=== PATIENT | female | born 1960 | race Caucasian/White ===

== ENCOUNTER → 2019-03-30 | Outpatient (CLI) | payer MEDICARE, OTHER ==
--- NOTE | 2019-03-30 08:28 | CT ---
EXAMINATION TYPE: CT cervical spine wo con DATE OF EXAM: 03/30/2019 COMPARISON: NONE HISTORY: Arm numbness and weakness. Neck pain. CT DLP: 369.7 mGycm. Automated Exposure Control for Dose Reduction was Utilized. TECHNIQUE: CT scan of the cervical spine is obtained without contrast, axial images are obtained, sa gittal and coronal reformatted images are also reviewed. FINDINGS: Cervical spine is visualized in its entirety from C1 through upper thoracic levels, demonst rates satisfactory alignment without evidence of acute fracture or dislocation. Prevertebral soft ti ssue appears within normal limits. The C1-C2 articulation is within normal limits on the coronal dahiana ges. Vertebral body heights are maintained. Moderate disc space narrowing is present C5-C6 level with posterior left paracentral spur disc complex effacing the anterior thecal sac and mild to moderate l eft-sided neural foraminal narrowing due to uncovertebral facet spurring. Review of axial images shows additional mild left greater than right bilateral neural foraminal narro wing due to uncovertebral spurring at C4-C5 level. Other levels are felt within normal limits on CT. Thyroid gland is felt within normal limits. Mild left apical pleural/parenchymal scarring is present. IMPRESSION: As above. Degenerative change C5-C6 level noted.
--- NOTE | 2019-03-30 08:32 | CT ---
EXAMINATION TYPE: CT lumbar spine wo con DATE OF EXAM: 03/30/2019 8:18 AM COMPARISON: None. HISTORY: Low back pain with leg weakness and multiple falls CT DLP: 624.7 mGycm Automated exposure control for dose reduction was used. Unenhanced CT of the lumbar spine was performed. Bone and soft tissue window settings are submitted as well as coronal and sagittal reconstructions. There are 5 lumbar-type vertebrae are identified though the L5 vertebra is sacralized on the left. Al ignment is satisfactory. Vertebral body heights and disc space heights are maintained. No large poste rior disc herniations on sagittal images. No significant spurring. Axial images show [id number] facet arthropathy L4-L5 level and moderate to advanced right great er than left facet arthropathy at L5-S1 level. There is partial visualization of posterior sacral wir e and cholecystectomy clips. IMPRESSION: Sacralized left L5 segment with lower lumbar spine facet arthropathy. No large focal disc herniation is identified.
== END | disposition home or self-care (01) ==
LOC: RADCTMAIN 07:49
PROVIDERS: ATTEND Psychiatry & Neurology Neurology
DX: M99.71 Connective tissue and disc stenosis of intervertebral foramina of cervical region (principal); M47.812 Spondylosis without myelopathy or radiculopathy, cervical region; M46.97 Unspecified inflammatory spondylopathy, lumbosacral region; Z88.5 Allergy status to narcotic agent; Z91.040 Latex allergy status
CPT/HCPCS: 72125; 72131

== ENCOUNTER 2022-02-19 10:22 | Day surgery (SDC) | payer MEDICARE, OTHER ==
[2022-02-15 11:52] VITALS: BMI 30.1
[~2022-02-19 10:22] MED LIST: LIDOCAINE 1% (10MG/ML) FOR IV START INTRADERMA PRN
[2022-02-19 11:27] VITALS: TEMP 97.7
[2022-02-19] MEDS: LACTATED RINGERS 1,000 ML IV SCH ×2 (11:38→11:51)
[2022-02-19] MEDS ORDERED: PROPOFOL 10 MG/ML 20 ML VIAL IV ONE (11:52)
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
--- NOTE | 2022-02-19 12:14 | P.OP ---
Date of Procedure: 02/19/22 Preoperative Diagnosis: Possible right colon mass Postoperative Diagnosis: Mild diverticulosis Procedure(s) Performed: Colonoscopy Anesthesia: MAC Surgeon: Nick Cm Pathology: none sent Condition: stable Disposition: PACU Description of Procedure: The patient's placed on the endoscopy table in the lateral position. She received IV sedation. Digital rectal exam was performed. This revealed no abnormalities. Flexible colonoscope was then placed patient anus and passed throughout the entire colon. Ileocecal valve was visualized. A pediatric scope was utilized because the colon was quite tortuous. The appendiceal orifice was seen. The cecum appeared normal. The ascending colon appeared normal. The hepatic flexure appeared normal. The transverse colon appeared normal. The descending; was mild diverticular changes. Scope was then brought back into the rectum and this appeared normal. Scope withdrawn for patient.
[2022-02-19 12:31] VITALS: BP 103/57; PULSE 53; RESP 16
== END 2022-02-19 13:00 | disposition home or self-care (01) ==
LOC: ORWHC2ENDO 10:22
PROVIDERS: ATTEND Surgery
DX: K57.30 Diverticulosis of large intestine without perforation or abscess without bleeding (principal); M79.7 Fibromyalgia; G40.909 Epilepsy, unspecified, not intractable, without status epilepticus; I34.1 Nonrheumatic mitral (valve) prolapse; J45.909 Unspecified asthma, uncomplicated; F98.8 Other specified behavioral and emotional disorders with onset usually occurring in childhood and adolescence; F90.9 Attention-deficit hyperactivity disorder, unspecified type; Z87.19 Personal history of other diseases of the digestive system; Z90.49 Acquired absence of other specified parts of digestive tract; Z87.891 Personal history of nicotine dependence; Z80.1 Family history of malignant neoplasm of trachea, bronchus and lung; Z80.52 Family history of malignant neoplasm of bladder; Z79.899 Other long term (current) drug therapy; Z79.890 Hormone replacement therapy; Z88.5 Allergy status to narcotic agent; Z91.040 Latex allergy status
CPT/HCPCS: 45378; J2704

== ENCOUNTER → 2022-05-31 | Outpatient (CLI) | payer MEDICARE, OTHER ==
--- NOTE | 2022-05-31 12:15 | CT ---
EXAMINATION TYPE: CT abdomen pelvis w con CT DLP: 1194 mGycm, Automated exposure control for dose reduction was used. DATE OF EXAM: 05/31/2022 11:50 AM COMPARISON: CT lumbar spine 03/30/2019. CLINICAL INDICATION:Female, 61 years old with history of K57.33 Diverticulitis; TECHNIQUE: Standard CT of the abdomen and pelvis following the administration of 70 cc of Isovue 30 0 IV contrast material and oral contrast. Coronal and sagittal reformats were performed. FINDINGS: LOWER CHEST: Unremarkable ABDOMEN LIVER: Unremarkable GALLBLADDER AND BILE DUCTS: Unremarkable. PANCREAS: Unremarkable. SPLEEN: Unremarkable. ADRENAL GLANDS: Unremarkable. KIDNEYS AND URETERS: No evidence of hydronephrosis or renal calculus. The kidneys enhance symmetrical ly without suspicious focal lesion. Contrast is demonstrated within both collecting systems on the de layed phase. PELVIS BLADDER: Unremarkable REPRODUCTIVE: The uterus is surgically absent. No suspicious adnexal mass. ABDOMEN & PELVIS STOMACH AND BOWEL: Stomach and duodenum are unremarkable. Sigmoid colonic diverticulosis without evid ence for acute diverticulitis. No pericolonic abscess. The appendix is not definitively visualized ho wever there is no significant inflammatory changes within the right lower quadrant. No evidence of julio wel obstruction. Enteric contrast reaches the ascending colon. PERITONEUM: No evidence of pneumoperitoneum or free fluid. VASCULATURE: No evidence of aortic aneurysm. MUSCULOSKELETAL: No acute osseous abnormalities. Sacralized left L5 segment. LYMPH NODES: No gross evidence for lymphadenopathy. SOFT TISSUE/ABDOMINAL WALL: Left gluteal soft tissue spinal stimulator power pack identified with juan d extending through the left inferior sacral foramen. Small fat filled umbilical hernia. Postsurgical changes of the ventral abdominal wall with surgical clips identified. IMPRESSION: 1. No acute abdominal/pelvic process. 2. Sigmoid diverticulosis without evidence for acute diverticulitis.
== END | disposition home or self-care (01) ==
LOC: RADCTMAIN 09:45
PROVIDERS: ATTEND Surgery
DX: K57.30 Diverticulosis of large intestine without perforation or abscess without bleeding (principal)
CPT/HCPCS: 74177; Q9967 ×2

== ENCOUNTER 2022-06-20 13:41 | Emergency (ER) | payer MEDICARE, OTHER ==
[2022-06-20 13:57] VITALS: RESP 18
[2022-06-20] MEDS ORDERED: HYDROcodone/APAP 5-325MG 1 EACH TAB PO STA (14:53)
[2022-06-20] MEDS ORDERED: SODIUM CHLORIDE 0.9% 1,000 ML IV STA (14:53)
[2022-06-20] MEDS ORDERED: ONDANSETRON 4 MG/2 ML VIAL IVP STA (14:53)
[2022-06-20] MEDS ORDERED: KETOROLAC 15 MG/ML 1 ML VIAL IVP STA (14:53)
[2022-06-20 14:59] LABS: Basophils # (A) 0.1 k/uL (0-0.2); Basophils % (A) 1 %; Eosinophils # (A) 0.2 k/uL (0-0.7); Eosinophils % (A) 2 %; HCT 44.1 % (34.0-46.0); HGB 14.6 gm/dL (11.4-16.0); Lymphocytes # (A) 3.2 k/uL (1.0-4.8); Lymphocytes % (A) 25 %; MCH 31.3 pg (25.0-35.0); MCHC 33.1 g/dL (31.0-37.0); MCV 94.5 fL (80.0-100.0); Mean Platelet Volume 8.3; Monocytes # (A) 0.6 k/uL (0-1.0); Monocytes % (A) 4 %; Neutrophils # (A) 8.4 k/uL (1.3-7.7); Neutrophils % (A) 66 %; Platelet Count 491 k/uL (150-450); RBC 4.66 m/uL (3.80-5.40); RDW 13.1 % (11.5-15.5); WBC 12.7 k/uL (3.8-10.6)
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
[2022-06-20 15:09] LABS: ALT 28 U/L (4-34); AST 26 U/L (14-36); African American GFR (CKD) >90 (>60 ml/min/1.73 sqM); Albumin 4.5 g/dL (3.5-5.0); Alkaline Phosphatase 96 U/L (38-126); Anion Gap 10 mmol/L; Blood Urea Nitrogen 19 mg/dL (7-17); Calcium 8.9 mg/dL (8.4-10.2); Carbon Dioxide 22 mmol/L (22-30); Chloride 107 mmol/L (98-107); Glucose 102 mg/dL (74-99); Non-African American GFR(CKD) >90 (>60 ml/min/1.73 sqM); Potassium 4.2 mmol/L (3.5-5.1); Sodium 139 mmol/L (137-145); Total Bilirubin 0.3 mg/dL (0.2-1.3); Total Protein 7.1 g/dL (6.3-8.2)
[2022-06-20 15:30] LABS: Appearance,Urine Cloudy (Clear); Bacteria,Urine Rare /hpf; Bilirubin,Urine Negative (Negative); Blood,Urine Negative (Negative); Calcium Oxalate Crystals,Urine Many /hpf; Color,Urine Yellow; Glucose,Urine (UA) Negative (Negative); Hyaline Casts,Urine 1 /lpf (0-2); Ketones,Urine 1+ (Negative); Leukocyte Esterase,Urine Small (Negative); Mucus,Urine Occasional /hpf; Nitrite,Urine Negative (Negative); Protein,Urine Trace (Negative); RBC,Urine 1 /hpf (0-5); Specific Gravity,Urine 1.029 (1.001-1.035); Squamous Epithelial Cell,Urine 1 /hpf (0-4); WBC,Urine 1 /hpf (0-5)
--- NOTE | 2022-06-20 15:56 | CT ---
EXAMINATION TYPE: CT abdomen pelvis w con DATE OF EXAM: 06/20/2022 HISTORY: Abdominal pain, hole in bowel per patient CT DLP: 869.8mGycm Automated Exposure Control for Dose Reduction was Utilized. CONTRAST: CT scan of the abdomen and pelvis is performed without oral and with IV Contrast, patient injected wi th 100 mL of Isovue 300. COMPARISON: CT abdomen and pelvis 20 days ago FINDINGS: LUNG BASES: No significant abnormality is appreciated. LIVER/GB: Cholecystectomy clips are redemonstrated. PANCREAS: No significant abnormality is seen. SPLEEN: No significant abnormality is seen. ADRENALS: No significant abnormality is seen. KIDNEYS: Symmetric cortical medullary uptake and excretion without hydronephrosis seen bilaterally. BOWEL: Suboptimal evaluation bowel without enteric contrast. No suspicious small or large bowel dilat ation is seen. Diverticula in the left and sigmoid colon redemonstrated. Mild wall thickening involvi ng distal one half of the transverse colon. Mild/moderate wall thickening in the left colon. Moderate wall thickening in the proximal two thirds of the sigmoid colon. No free air. No significant fat str anding. UTERUS/ADNEXA: Uterus surgically absent. Surgical clip in the pelvis axial image 71 redemonstrated. LYMPH NODES: No greater than 1cm abdominal or pelvic lymph nodes are appreciated. OSSEOUS STRUCTURES: Facet arthropathy lower lumbar levels redemonstrated.. OTHER: Posterior left gluteal stimulator device with leads terminating in the presacral space redemon strated. Small fat-containing umbilical hernia redemonstrated. Surgical clips in the deep anterior pe lvic subcutaneous tissue along with intraperitoneal clip on the right axial image 67 are redemonstrat ed. IMPRESSION: Distal colonic diverticulosis without convincing CT evidence for acute diverticulitis. Ar eas of abnormal wall thickening could reflect product of uncomplicated colitis versus poor distention . Correlate clinically. Similar findings noted on most recent CT. No bowel obstruction noted. No new or acute findings otherwise evident.
[2022-06-20 17:16] VITALS: BP 122/77; PULSE 71; TEMP 98.2
== END 2022-06-20 17:17 | disposition home or self-care (01) ==
LOC: EC 13:41
DX: R10.9 Unspecified abdominal pain (principal); G40.909 Epilepsy, unspecified, not intractable, without status epilepticus; F90.9 Attention-deficit hyperactivity disorder, unspecified type; F41.9 Anxiety disorder, unspecified; Z79.899 Other long term (current) drug therapy; Z87.891 Personal history of nicotine dependence; Z91.040 Latex allergy status; Z88.5 Allergy status to narcotic agent
CPT/HCPCS: 36415; 80053; 83605; 85025; 81001; 74177; 99284; 96374; 96375; 96361; J2405; J1885; Q9967

== ENCOUNTER 2022-07-02 07:40 | Inpatient (IN) | payer MEDICARE, OTHER ==
[~2022-07-02 07:40] MED LIST changes: +ACETAMINOPHEN TAB 500 MG TAB PO PRN; +HEPARIN SODIUM,PORCINE/PF 5,000 UNIT/0.5 ML SYRINGE SQ PRN; -LIDOCAINE 1% (10MG/ML) FOR IV START INTRADERMA PRN; +metroNIDAZOLE-NS PMX 500 MG in SALINE 1 100ML.BAG IVPB PRN
[2022-07-02] MEDS ORDERED: SCOPOLAMINE 1 MG/72 HR PATCH TRANSDERM ONE (08:12)
[2022-07-02] MEDS ORDERED: fentaNYL (PF) 50 MCG/ML 2 ML AMP IV PRN (08:12)
[2022-07-02] MEDS ORDERED: MIDAZOLAM 2 MG/2 ML VIAL IV PRN (08:12)
[2022-07-02] MEDS ORDERED: DEXAMETHASONE SOD PHOSPHATE 4 MG/ML 1 ML VIAL IV ONE (08:12)
[2022-07-02] MEDS ORDERED: ONDANSETRON 4 MG/2 ML VIAL IVP ONE ×2 (08:12→16:15)
[2022-07-02] MEDS: LACTATED RINGERS 1,000 ML IV SCH ×2 (12:56→13:40)
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
[2022-07-02] MEDS ORDERED: LIDOCAINE 1% (10MG/ML) FOR IV START INTRADERMA ONE (13:40)
[2022-07-02] MEDS ORDERED: ALVIMOPAN 12 MG CAPSULE PO ONE (14:05)
[2022-07-02] MEDS ORDERED: fentaNYL (PF) 50 MCG/ML 2 ML AMP ONE (14:08)
[2022-07-02] MEDS ORDERED: GLYCOPYRROLATE 0.2 MG/ML 2 ML VIAL ONE (14:08)
[2022-07-02] MEDS ORDERED: LIDOCAINE 4% LTA KIT (4 ML) TOPICAL ONE (14:08)
[2022-07-02] MEDS ORDERED: ROCURONIUM 10 MG/ML (5 ML VIAL) IV ONE (14:08)
[2022-07-02] MEDS ORDERED: PHENYLEPHRINE-0.9% NACL SYG 1,000 MCG/10 ML SYRINGE ONE (14:08)
[2022-07-02] MEDS ORDERED: MIDAZOLAM 2 MG/2 ML VIAL ONE (14:08)
[2022-07-02] MEDS ORDERED: SUCCINYLCHOLINE CHLORIDE 200 MG/10 ML VIAL IV ONE (14:08)
[2022-07-02] MEDS ORDERED: LIDOCAINE 2% INJ 20 MG/ML (2 ML VIAL) ONE (14:08)
[2022-07-02] MEDS ORDERED: NEOSTIGMINE 1 MG/ML 10 ML VIAL ONE (14:08)
[2022-07-02] MEDS ORDERED: ePHEDrine 50 MG/ML 1 ML VIAL ONE (14:08)
[2022-07-02] MEDS ORDERED: PROPOFOL 10 MG/ML 20 ML VIAL IV ONE (14:08)
--- NOTE | 2022-07-02 14:14 | P.ANPRN ---
Procedure Note - Anesthesia - Epidural/Spinal Epidural Continuous Time Out Performed: Yes Date of Procedure: 07/02/22 Procedure Start Time: 13:50 Procedure Stop Time: 14:00 Location of Patient: PreOp Indication: Acute Post-Operative Pain, Requested by Surgeon Sedation Type: Sedate with meaningful contact maintained Preparation: Sterile Dressing Position: Sitting Catheter: Indwelling Needle Guage: 18 (SEGUNDO -7 CM , and catheter at 12 CM), Other (see comment) Injectate: Test Dose Lidocaine1.5% w/1:200,000 epi Blood Aspirated: No Pain Paresthesia on Injection Noted: No Events: Uneventful and Well Tolerated (5 ml of 1.5% lidocaine with 1: 200K epinephrine)
[2022-07-02] MEDS ORDERED: NALOXONE 0.4 MG/ML 1 ML VIAL IV PRN (14:24)
[2022-07-02] MEDS ORDERED: LACTATED RINGERS 1,000 ML IV ONE (15:09)
[2022-07-02] MEDS ORDERED: BENZOCAINE/MENTHOL LOZENG 1 EACH LOZENGE MUCOUS MEM PRN (15:32)
[2022-07-02] MEDS ORDERED: ONDANSETRON 4 MG/2 ML VIAL IVP PRN (15:32)
--- NOTE | 2022-07-02 15:32 | P.OP ---
Date of Procedure: 07/02/22 Preoperative Diagnosis: Diverticulitis Postoperative Diagnosis: Diverticulitis Adhesions Procedure(s) Performed: Lysis of extensive adhesions Low anterior resection Anesthesia: KECIA Surgeon: Nick Cm Estimated Blood Loss (ml): 25 Pathology: other (Sigmoid colon) Condition: stable Disposition: PACU Description of Procedure: DESCRIPTION OF PROCEDURE: The patient was placed on the operating table in the supine position. Patient received a general anesthesia. Patient was then placed in the dorsal lithotomy position. The patients abdomen was prepped and draped in the usual sterile fashion. Through a low midline incision, the abdomen was entered. There is extensive adhesions due to the patient's previous laparotomy. Approximately 25 minutes of operative time used to lyse adhesions along the midline scar. The Knott retractor was placed in the wound. The stomach appeared normal. The small bowel appeared normal. The liver appeared normal. The right colon and transverse colon appeared normal. On the left colon, there was an extensiv e diverticulosis noted. The sigmoid colon was then mobilized by dividing the white line of T[place]t with electrocautery. At this point, the proximal sigmoid colon was transected with a GI stapler after a window had been made in the mesentery. The distal sigmoid colon was then dissected. Mesentery was taken down between Flora clamps and ligated with #0 silk ties. At a point beyond the lesion, the bowel was then transected with a Proximate stapler. This was then removed. The splenic flexure was then taken down in order to provide adequate lengthening of the sigmoid colon. At this point, the auto purse- string suture device was placed across the proximal colon and fired. The colon was then opened. The 29 mm EEA anvil was then placed into the colon and then the purse-string was secured. The EEA stapler device was then placed in the patients anus and passed into the rectum. The nail for the EEA was then brought out through the distal rectum and then attached to the anvil. The EEA stapler device was then fired. The anastomosis was inspected. There were 2 good donuts of tissue removed from the EEA stapler. The anastomosis was then tested under water and there was no air leak seen. At this point the abdomen was then irrigated. There was no bleeding seen. The fascia was then closed with double stranded #1 PDS. The skin was closed with lorna. The patient tolerated the procedure well.
[2022-07-02] MEDS: ROPIVACAINE 250 MG, HYDROMORPHONE (PF) 5 MG in SODIUM CHLORIDE 0.9% 200 ML EPIDURAL PRN ×2 (15:41→16:55)
[2022-07-02] MEDS: D5-0.45% NACL WITH KCL 20MEQ/L 1,000 ML IV SCH (18:27)
[2022-07-02 19:15] LABS: Basophils % (A) 0 %; Eosinophils % (A) 0 %; HCT 41.6 % (34.0-46.0); HGB 13.3 gm/dL (11.4-16.0); Lymphocytes # (A) 0.8 k/uL (1.0-4.8); Lymphocytes % (A) 4 %; Mean Platelet Volume 8.6; Monocytes # (A) 0.6 k/uL (0-1.0); Monocytes % (A) 3 %; Neutrophils # (A) 19.4 k/uL (1.3-7.7); Neutrophils % (A) 93 %; Platelet Count 430 k/uL (150-450); RBC 4.29 m/uL (3.80-5.40); RDW 13.4 % (11.5-15.5)
[2022-07-02 19:20] LABS: African American GFR (CKD) >90 (>60 ml/min/1.73 sqM); Anion Gap 4 mmol/L; Blood Urea Nitrogen 12 mg/dL (7-17); Calcium 8.4 mg/dL (8.4-10.2); Carbon Dioxide 29 mmol/L (22-30); Chloride 105 mmol/L (98-107); Glucose 140 mg/dL (74-99); Non-African American GFR(CKD) >90 (>60 ml/min/1.73 sqM); Potassium 3.5 mmol/L (3.5-5.1); Sodium 138 mmol/L (137-145)
[2022-07-02] MEDS: HYDROmorphone 0.5 MG/0.5 ML SYRINGE IVP PRN (20:25)
[2022-07-02] MEDS: ALVIMOPAN 12 MG CAPSULE PO SCH (20:26)
[2022-07-02] MEDS: FAMOTIDINE 20 MG/2 ML VIAL IV SCH (20:26)
[2022-07-03] MEDS: METOCLOPRAMIDE 5 MG/ML 2 ML VIAL IVP PRN (02:30)
[2022-07-03] MEDS: D5-0.45% NACL WITH KCL 20MEQ/L 1,000 ML IV SCH ×3 (02:30→21:36)
--- NOTE | 2022-07-03 07:08 | P.PN ---
Progress Note - Text Progress Note Date: 07/03/22 Postoperative day # status post low anterior resection ,epidural catheter placed for postoperative analgesia, patient doing well epidural site okay, patient currently on combination of epidural infusion solution of Ropivacaine 0.0625% and Dilaudid 20 g per mL the infusion rate at 9 ml per hour , patient had no motor deficit epidural site okay , vital signs stable ,VAS 4/10 , Assessment and plan= post operative day # 1 patient doing well ,pain well controlled , there is no anesthesia related complications
[2022-07-03] MEDS: ALVIMOPAN 12 MG CAPSULE PO SCH ×2 (08:48→20:51)
[2022-07-03] MEDS: HYDROmorphone 0.5 MG/0.5 ML SYRINGE IVP PRN ×3 (08:48→20:52)
[2022-07-03] MEDS: FAMOTIDINE 20 MG/2 ML VIAL IV SCH ×2 (08:48→20:52)
[2022-07-03] MEDS: LACTATED RINGERS 1,000 ML IV SCH (08:49)
[2022-07-03 11:53] LABS: Basophils # (A) 0.1 k/uL (0-0.2); Basophils % (A) 1 %; Eosinophils # (A) 0.1 k/uL (0-0.7); Eosinophils % (A) 1 %; HCT 37.4 % (34.0-46.0); HGB 12.1 gm/dL (11.4-16.0); Hypochromasia Slight; Lymphocytes # (A) 1.9 k/uL (1.0-4.8); Lymphocytes % (A) 12 %; MCH 31.7 pg (25.0-35.0); MCHC 32.4 g/dL (31.0-37.0); MCV 97.8 fL (80.0-100.0); Mean Platelet Volume 8.5; Monocytes # (A) 1.1 k/uL (0-1.0); Monocytes % (A) 7 %; Neutrophils # (A) 12.1 k/uL (1.3-7.7); Neutrophils % (A) 78 %; Platelet Count 426 k/uL (150-450); RBC 3.82 m/uL (3.80-5.40); RDW 13.1 % (11.5-15.5); WBC 15.5 k/uL (3.8-10.6)
[2022-07-03 12:13] LABS: African American GFR (CKD) >90 (>60 ml/min/1.73 sqM); Anion Gap 1 mmol/L; Blood Urea Nitrogen 6 mg/dL (7-17); Calcium 8.5 mg/dL (8.4-10.2); Carbon Dioxide 31 mmol/L (22-30); Chloride 107 mmol/L (98-107); Glucose 117 mg/dL (74-99); Non-African American GFR(CKD) >90 (>60 ml/min/1.73 sqM); Potassium 4.9 mmol/L (3.5-5.1); Sodium 139 mmol/L (137-145)
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
--- NOTE | 2022-07-03 15:03 | P.PN ---
Subjective Progress Note Date: 07/03/22 CHIEF COMPLAINT: Diverticulitis HISTORY OF PRESENT ILLNESS: Patient status post lower anterior resection. Postop day #1. She has epidural for pain. Patient did report having abdominal pain. It is controlled with current pain medication she is using the Dilaudid for breakthrough pain. She is having a small amount of flatus. She did have nausea which has shown improvement. No vomiting. Afebrile. BP 91/51. WBC 21 down to 15.5 hemoglobin 12.1 platelets 426 sodium 139 potassium is 4.9 creatinine 0.68 PHYSICAL EXAM: VITAL SIGNS: Reviewed. GENERAL: Well-developed in no acute distress. HEENT: No sclera icterus. Extraocular movements grossly intact. Moist buccal mucosa. Head is atraumatic, normocephalic. ABDOMEN: Soft. Nondistended. mild tenderness at incision site NEUROLOGIC: Alert and oriented. Cranial nerves II through XII grossly intact. ASSESSMENT: 1. Diverticulitis status post lower anterior resection and lysis of adhesions 2. Leukocytosis likely reactive to steroids PLAN: -Continue epidural for pain control with IV Dilaudid as needed for breakthrough pain -Continue antiemetics -Continue IV fluids -Continue Clear liquid diet -Consult physical therapy and ambulate patient -Encouraged patient to use incentive spirometer -Change surgical dressing to Optifoam silver -GI prophylaxis Pepcid and DVT prophylaxis subcu heparin Physician Network Applications Specialist note has been reviewed by physician. Signing provider agrees with the documented findings, assessment, and plan of care. I have personally seen and examined the patient, reviewed the SENIOR ORACLE ADF DEVELOPER /PAs history, exam and MDM and agree with the assessment and plan as written. Based on total visit time, I have performed more than 50% of the visit. As above: Patient doing well today. She had some nausea earlier. No vomiting. No bowel function. She is on clear liquids. Increase activity. Objective - Vital Signs Vital signs: Vital Signs Temp 98.4 F 07/03/22 11:57 Pulse 80 07/03/22 11:57 Resp 20 07/03/22 11:57 BP 91/51 07/03/22 11:57 Pulse Ox 97 07/03/22 11:57 FiO2 Intake & Output 07/02/22 07/03/22 07/03/22 18:59 06:59 18:59 Intake Total 1588.5 Output Total 250 250 Balance 1338.5 -250 Weight 72.5 kg Intake: IV 1463.5 Intake, IV Titration 125 Amount D5-0.45% NaCl with KCl 125 20Meq/l 1,000 ml @ 125 mls/hr IV .Q8H [facility] Rx#: [id number] Output: Urine 200 200 Emesis 50 Estimated Blood Loss 50 Other: Voiding Method Indwelling Catheter Indwelling Catheter - Labs CBC & Chem 7: 07/03/22 11:41 07/03/22 11:41 Labs: Abnormal Lab Results - Last 24 Hours (Table) 07/02/22 07/02/22 07/03/22 Range/Units 18:57 18:57 11:41 WBC 21.0 H 15.5 H (3.8-10.6) k/uL Neutrophils # 19.4 H 12.1 H (1.3-7.7) k/uL Lymphocytes # 0.8 L (1.0-4.8) k/uL Monocytes # 1.1 H (0-1.0) k/uL Carbon Dioxide (22-30) mmol/L BUN (7-17) mg/dL Glucose 140 H (74-99) mg/dL 07/03/22 Range/Units 11:41 WBC (3.8-10.6) k/uL Neutrophils # (1.3-7.7) k/uL Lymphocytes # (1.0-4.8) k/uL Monocytes # (0-1.0) k/uL Carbon Dioxide 31 H (22-30) mmol/L BUN 6 L (7-17) mg/dL Glucose 117 H (74-99) mg/dL
[2022-07-03] MEDS: ALPRAZolam 0.25 MG TAB PO PRN (16:02)
[2022-07-03] MEDS: ROPIVACAINE 250 MG, HYDROMORPHONE (PF) 5 MG in SODIUM CHLORIDE 0.9% 200 ML EPIDURAL PRN (16:14)
[2022-07-03] MEDS: HEPARIN SODIUM,PORCINE/PF 5,000 UNIT/0.5 ML SYRINGE SQ SCH (20:52)
[2022-07-04] MEDS: D5-0.45% NACL WITH KCL 20MEQ/L 1,000 ML IV SCH ×3 (02:19→16:08)
[2022-07-04] MEDS: NON FORMULARY DRUG (Dextroamphetamine/Amphetamine [Adderall] 10 MG Tablet) PO SCH ×2 (06:15→11:07)
[2022-07-04] MEDS: LEVOTHYROXINE 88 MCG TAB PO SCH (06:16)
--- NOTE | 2022-07-04 07:50 | P.PN ---
Progress Note - Text Progress Note Date: 07/04/22 Postop day 2 from laparotomy anterior section , epidural catheter inserted for postop pain control. Epidural solution: Ropivacaine with Dilaudid running at 9 mL an hour. Patient pain is well controlled with visual analog score of 0-1/10. No nausea vomiting, itching, weakness or numbness in the legs or headache reported by the patient. Plan: To continue the epidural infusion at the current rate.
[2022-07-04 08:55] LABS: Basophils % (A) 0 %; Eosinophils # (A) 0.4 k/uL (0-0.7); Eosinophils % (A) 3 %; HCT 34.5 % (34.0-46.0); HGB 10.9 gm/dL (11.4-16.0); Hypochromasia Slight; Lymphocytes % (A) 16 %; MCHC 31.7 g/dL (31.0-37.0); MCV 97.7 fL (80.0-100.0); Mean Platelet Volume 9.4; Monocytes # (A) 0.8 k/uL (0-1.0); Monocytes % (A) 7 %; Neutrophils # (A) 8.7 k/uL (1.3-7.7); Neutrophils % (A) 71 %; Platelet Count 343 k/uL (150-450); RBC 3.53 m/uL (3.80-5.40); RDW 13.5 % (11.5-15.5); WBC 12.2 k/uL (3.8-10.6)
[2022-07-04] MEDS: ONDANSETRON 4 MG/2 ML VIAL IVP PRN ×2 (10:13→18:42)
[2022-07-04] MEDS: ALVIMOPAN 12 MG CAPSULE PO SCH ×2 (10:45→20:30)
[2022-07-04] MEDS: HEPARIN SODIUM,PORCINE/PF 5,000 UNIT/0.5 ML SYRINGE SQ SCH ×2 (10:45→20:30)
[2022-07-04] MEDS: LACTATED RINGERS 1,000 ML IV SCH (11:07)
[2022-07-04] MEDS: FAMOTIDINE 20 MG/2 ML VIAL IV SCH ×2 (11:10→20:30)
--- NOTE | 2022-07-04 11:17 | P.PN ---
Subjective Progress Note Date: 07/04/22 CHIEF COMPLAINT: Diverticulitis HISTORY OF PRESENT ILLNESS: Patient status post lower anterior resection. Postop day #2. Patient reports her pain and nausea have improved today. Her pain is controlled with the epidural. She denies any nausea or vomiting. She is tolerating clear liquids. Denies any flatus or bowel movement. She has been up and ambulating. Afebrile. WBC is down from 15.5-12.2 hemoglobin 10.9 Patient seen and examined with Dr. Cm PHYSICAL EXAM: VITAL SIGNS: Reviewed. GENERAL: Well-developed in no acute distress. HEENT: No sclera icterus. Extraocular movements grossly intact. Moist buccal mucosa. Head is atraumatic, normocephalic. ABDOMEN: Soft. Nondistended. Incisional dressing with 2 small areas of blood saturation at the distal aspect and inferior aspect NEUROLOGIC: Alert and oriented. Cranial nerves II through XII grossly intact. ASSESSMENT: 1. Diverticulitis status post lower anterior resection and lysis of adhesions 2. Leukocytosis likely reactive to steroids PLAN: -Continue epidural for pain control -Continue antiemetics -Continue IV fluids -Continue Clear liquid diet -Consult physical therapy and ambulate patient -Encouraged patient to use incentive spirometer -GI prophylaxis Pepcid and DVT prophylaxis subcu heparin Physician Food Safety Manager note has been reviewed by physician. Signing provider agrees with the documented findings, assessment, and plan of care. Objective - Vital Signs Vital signs: Vital Signs Temp 99.2 F 07/04/22 04:48 Pulse 84 07/04/22 04:48 Resp 15 07/04/22 04:48 BP 108/57 07/04/22 04:48 Pulse Ox 95 07/04/22 04:48 FiO2 Intake & Output 07/03/22 07/04/22 07/04/22 18:59 06:59 18:59 Intake Total 1500 Output Total 1450 400 Balance 1500 -1450 -400 Intake: IV 1500 D5-0.45% NaCl with KCl 1500 20Meq/l 1,000 ml @ 125 mls/hr IV .Q8H [facility] Rx#: [id number] Output: Urine 1450 400 Other: Voiding Method Indwelling Catheter Indwelling Catheter Indwelling Catheter - Labs CBC & Chem 7: 07/04/22 08:41 07/03/22 11:41 Labs: Abnormal Lab Results - Last 24 Hours (Table) 07/03/22 07/03/22 07/04/22 Range/Units 11:41 11:41 08:41 WBC 15.5 H 12.2 H (3.8-10.6) k/uL RBC 3.53 L (3.80-5.40) m/uL Hgb 10.9 L (11.4-16.0) gm/dL Neutrophils # 12.1 H 8.7 H (1.3-7.7) k/uL Monocytes # 1.1 H (0-1.0) k/uL Carbon Dioxide 31 H (22-30) mmol/L BUN 6 L (7-17) mg/dL Glucose 117 H (74-99) mg/dL
[2022-07-04] MEDS: ALBUTEROL HFA INHALER INHALATION PRN ×3 (11:29→20:24)
[2022-07-04] MEDS: ROPIVACAINE 250 MG, HYDROMORPHONE (PF) 5 MG in SODIUM CHLORIDE 0.9% 200 ML EPIDURAL PRN (16:08)
[2022-07-04] MEDS: METOCLOPRAMIDE 5 MG/ML 2 ML VIAL IVP PRN (19:42)
[2022-07-05] MEDS: D5-0.45% NACL WITH KCL 20MEQ/L 1,000 ML IV SCH ×3 (01:30→18:04)
[2022-07-05] MEDS: NON FORMULARY DRUG (Dextroamphetamine/Amphetamine [Adderall] 10 MG Tablet) PO SCH ×2 (05:56→12:30)
[2022-07-05] MEDS: LEVOTHYROXINE 88 MCG TAB PO SCH (06:04)
[2022-07-05] MEDS: ONDANSETRON 4 MG/2 ML VIAL IVP PRN (06:21)
--- NOTE | 2022-07-05 06:49 | P.PN ---
Subjective Progress Note Date: 07/04/22 - Reason for Consult Consult date: 07/03/22 Medical manage postop low anterior resection with chronic diverticulitis - History of Present Illness This is a pleasant 61-year-old female who was admitted under general surgery services for lower anterior resection and follows with Dr. Cm outpatient. Patient reports her primary care provider is Dr. 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 [place] to the operating note patient had extensive adhesions due to the previous laparotomy and lysis of adhesions were done during procedure. Patient is currently maintained on epidural pain pump with anesthesia following an patient reports significant pain. Patient is currently on clear liquids and tolerating. Patient reports to having belching although no reports of gas or bowel movement as of yet. Patient with an incentive spirometer at the bedside encourage the patient to continue using at least 10 times every hour while awake. Will review home medications and resume appropriate medications and this was discussed with the patient at the bedside. Patient to increase activity slowly as tolerated and more so with the epidural pain pump is removed. 07/04/2022 Patient is seen this morning and is having some continued pain and maintained on epidural pump. Possible discontinue today and then will remove burt and increase activity as tolerated. Patient is to continue with clear liquid today per surgery and will be advanced per surgery recommendations once there is some bowel activity. Afebrile and WBC is trending down. No reports of chest pain or shortness of breath. Continue to encourage incentive spirometer at least 10 times per hour. Review Of Systems: Constitutional: No fever, no chills, no night sweats. No weight change. No weakness, fatigue or lethargy. No daytime sleepiness. Lungs: No shortness of breath, cough, no sputum production. No wheezing. Cardiovascular: No chest pain, no lower extremity edema. No palpitations. No paroxysmal nocturnal dyspnea. No orthopnea. No lightheadedness or dizziness. No syncopal episodes. Abdominal: reports abdominal pain. No nausea, vomiting. No diarrhea. No constipation. No bloody or tarry stools.. No loss of appetite. Reports no gas or bowel movement Genitourinary: No dysuria, increased frequency, urgency. No urinary retention. Musculoskeletal: No myalgias. No muscle weakness, no gait dysfunction, no f requent falls. No back pain. No neck pain. Neurologic: No aphasia. No facial droop. No change in mentation. No head injury. No headache. No paralysis. No paresthesia. PHYSICAL EXAMINATION: GENERAL: The patient is alert and oriented x4, Well developed, well nourished. HEENT: Pupils are round and equally reacting to light. EOMI. no scleral icterus. No conjunctival pallor. Normocephalic, atraumatic. No pharyngeal erythema. No thyromegaly. CARDIOVASCULAR: S1 and S2 muffled PULMONARY: diminished breath sounds bilaterally with no wheezing or rhonchi noted. ABDOMEN: soft. tender on exam. non-distended, hypoactive bowel sounds. No palpable organomegaly. MUSCULOSKELETAL: No joint swelling or deformity. EXTREMITIES: No cyanosis, clubbing, or pedal edema. NEUROLOGICAL: Gross neurological examination did not reveal any focal deficits. SKIN: No rashes. Assessment: Post lysis of adhesions and lower anterior resection Leukocytosis, possibly reactive secondary to above, trending down History of diverticulitis History of fibromyalgia History of seizure disorder History of colitis with IBS History of herniated disks in the back and neck with chronic pain GI prophylaxis DVT prophylaxis Full code Plan: Recommend to continue with current medications and management per general surgery services. Patient is postop day #2 for lysis of adhesions with low anterior resection and continued on pain pump. Possible removal today along with burt catheter. All home medications have been resumed. Patient is continued on clear liquid diet and will continue for now per surgery recommendations and advance as tolerated. Encouraged increase activity as tolerated and also encouraged to continue using incentive spirometer at least 10 times every hour while awake. PT/OT therapy consulted. Patient continues with indwelling B[place] catheter and will be removed once epidural is removed. Mild leukocytosis noted on exam most likely reactive as patient is afebrile and is trending down. Will follow-up with repeat labs in the a.m. and continue to follow along with general surgery during hospitalization. Thank you for this consultation. The impression and plan of care has been dictated by Judy Rodriguez, nurse practitioner as directed. Dr. Rachele MD I have performed a history and examination and MDM of this patient, discussed the same with the dictator, and agree with the dictator's assessment and plan as written ,documented as a scribe. Based on total visit time, I have performed more than 50% of the visit. Any additional findings or plans will be noted. Past Medical History Objective - Vital Signs Vital signs: Vital Signs Temp 98.4 F 07/05/22 04:30 Pulse 82 07/05/22 04:30 Resp 16 07/05/22 04:30 BP 105/68 07/05/22 04:30 Pulse Ox 94 L 07/05/22 04:30 FiO2 Intake & Output 07/04/22 07/04/22 07/05/22 06:59 18:59 06:59 Intake Total 215.1 Output Total 1450 1800 850 Balance -1450 -1584.9 -850 Intake: Intake, IV Titration 215.1 Amount Ropivacaine 250 mg 215.1 Hydromorphone (Pf) 5 mg In Sodium Chloride 0.9% 200 ml @ Per Protocol EPIDURAL .Q0M PRN Rx#: [id number] Output: Urine 1450 1800 850 Other: Voiding Method Indwelling Catheter Indwelling Catheter Indwelling Catheter - Labs CBC & Chem 7: 07/04/22 08:41 07/03/22 11:41 Labs: Abnormal Lab Results - Last 24 Hours (Table) 07/04/22 Range/Units 08:41 WBC 12.2 H (3.8-10.6) k/uL RBC 3.53 L (3.80-5.40) m/uL Hgb 10.9 L (11.4-16.0) gm/dL Neutrophils # 8.7 H (1.3-7.7) k/uL
--- NOTE | 2022-07-05 07:03 | P.PN ---
Progress Note - Text Progress Note Date: 07/05/22 Postoperative day # 3 status post low anterior resection ,epidural catheter placed for postoperative analgesia, patient doing well epidural site okay, patient currently on combination of epidural infusion solution of Ropivacaine 0.0625% and Dilaudid 20 g per mL the infusion rate at 9 ml per hour , patient had no motor deficit epidural site okay , vital signs stable ,VAS 4/10 , Assessment and plan= post operative day # 3 patient doing well ,pain well controlled , there is no anesthesia related complications
[2022-07-05 07:34] LABS: Basophils # (A) 0.1 k/uL (0-0.2); Basophils % (A) 1 %; Eosinophils # (A) 0.5 k/uL (0-0.7); Eosinophils % (A) 4 %; HCT 37.2 % (34.0-46.0); HGB 12.1 gm/dL (11.4-16.0); Hypochromasia Slight; Lymphocytes # (A) 1.6 k/uL (1.0-4.8); Lymphocytes % (A) 11 %; MCH 31.9 pg (25.0-35.0); MCHC 32.5 g/dL (31.0-37.0); Mean Platelet Volume 8.5; Monocytes # (A) 0.9 k/uL (0-1.0); Monocytes % (A) 6 %; Neutrophils % (A) 77 %; Platelet Count 420 k/uL (150-450); RBC 3.79 m/uL (3.80-5.40); RDW 13.1 % (11.5-15.5); WBC 14.3 k/uL (3.8-10.6)
[2022-07-05 07:48] LABS: African American GFR (CKD) >90 (>60 ml/min/1.73 sqM); Anion Gap 4 mmol/L; Blood Urea Nitrogen <2 mg/dL (7-17); Calcium 8.5 mg/dL (8.4-10.2); Carbon Dioxide 29 mmol/L (22-30); Chloride 103 mmol/L (98-107); Glucose 113 mg/dL (74-99); Non-African American GFR(CKD) >90 (>60 ml/min/1.73 sqM); Potassium 4.3 mmol/L (3.5-5.1); Sodium 136 mmol/L (137-145)
[2022-07-05] MEDS: ALBUTEROL HFA INHALER INHALATION PRN (07:53)
[2022-07-05] MEDS ORDERED: SENNOSIDES 8.6 MG TAB PO PRN (09:50)
[2022-07-05] MEDS: ALVIMOPAN 12 MG CAPSULE PO SCH ×2 (10:42→20:49)
[2022-07-05] MEDS: HEPARIN SODIUM,PORCINE/PF 5,000 UNIT/0.5 ML SYRINGE SQ SCH ×2 (10:42→20:48)
[2022-07-05] MEDS: HYDROcodone/APAP 10-325MG 1 EACH TAB PO PRN (11:06)
[2022-07-05] MEDS: ALPRAZolam 0.25 MG TAB PO PRN (11:06)
[2022-07-05] MEDS: FAMOTIDINE 20 MG/2 ML VIAL IV SCH ×2 (11:06→20:49)
[2022-07-05] MEDS: LACTATED RINGERS 1,000 ML IV SCH (11:11)
[2022-07-05] MEDS ORDERED: HYDROmorphone 1 MG/ML 1 ML SYRINGE IVP PRN (12:09)
[2022-07-05] MEDS: KETOROLAC 15 MG/ML 1 ML VIAL IVP SCH ×2 (13:28→18:03)
--- NOTE | 2022-07-05 14:12 | P.PN ---
Subjective Progress Note Date: 07/05/22 CHIEF COMPLAINT: Diverticulitis HISTORY OF PRESENT ILLNESS: Patient status post lower anterior resection. Postop day #3. Patient is complaining of more pain again today with nausea and vomiting. She is still had no flatus or bowel movement. Afebrile. WBC is up from 12.2-14.3 hemoglobin 12.1 platelets 420 Patient seen and examined with Dr. Cm PHYSICAL EXAM: VITAL SIGNS: Reviewed. GENERAL: Well-developed in no acute distress. HEENT: No sclera icterus. Extraocular movements grossly intact. Moist buccal mucosa. Head is atraumatic, normocephalic. ABDOMEN: Soft. Nondistended. Tenderness around incision site. Incision site clean dry and intact NEUROLOGIC: Alert and oriented. Cranial nerves II through XII grossly intact. ASSESSMENT: 1. Diverticulitis status post lower anterior resection and lysis of adhesions 2. Leukocytosis 3. Postoperative ileus PLAN: -Discontinue epidural and [place] catheter -Toradol and IV Dilaudid added for pain control -Reglan scheduled added for possible postoperative ileus -Encouraged patient ambulate -Encouraged patient to use incentive spirometer -Recommend cut back on diet to just sips of clears. If patient continues to have nausea and vomiting she'll need to be made nothing by mouth. -Continue IV fluids -Encouraged patient to use incentive spirometer -GI prophylaxis Pepcid and DVT prophylaxis subcu heparin Physician Electrogalvanizing Machine Operator note has been reviewed by physician. Signing provider agrees with the documented findings, assessment, and plan of care. Objective - Vital Signs Vital signs: Vital Signs Temp 96.7 F L 07/05/22 07:40 Pulse 99 07/05/22 10:45 Resp 16 07/05/22 07:40 BP 131/78 07/05/22 10:45 Pulse Ox 95 07/05/22 07:40 FiO2 Intake & Output 07/04/22 07/05/22 07/05/22 18:59 06:59 18:59 Intake Total 215.1 Output Total 1800 850 Balance -1584.9 -850 Intake: Intake, IV Titration 215.1 Amount Ropivacaine 250 mg 215.1 Hydromorphone (Pf) 5 mg In Sodium Chloride 0.9% 200 ml @ Per Protocol EPIDURAL .Q0M PRN Rx#: [id number] Output: Urine 1800 850 Other: Voiding Method Indwelling Catheter Indwelling Catheter Indwelling Catheter - Labs CBC & Chem 7: 07/05/22 06:51 07/05/22 06:51 Labs: Abnormal Lab Results - Last 24 Hours (Table) 07/05/22 07/05/22 Range/Units 06:51 06:51 WBC 14.3 H (3.8-10.6) k/uL RBC 3.79 L (3.80-5.40) m/uL Neutrophils # 11.0 H (1.3-7.7) k/uL Sodium 136 L (137-145) mmol/L BUN <2 L (7-17) mg/dL Glucose 113 H (74-99) mg/dL
[2022-07-05] MEDS: PIPERACILLIN-TAZOBACTAM 3.375 GM in SODIUM CHLORIDE 0.9% 100 ML IVPB SCH (15:24)
[2022-07-05] MEDS: METOCLOPRAMIDE 5 MG/ML 2 ML VIAL IVP SCH (18:03)
--- NOTE | 2022-07-05 18:47 | P.PN ---
Subjective Progress Note Date: 07/05/22 - Reason for Consult Consult date: 07/03/22 Medical manage postop low anterior resection with chronic diverticulitis - History of Present Illness This is a pleasant 61-year-old female who was admitted under general surgery services for lower anterior resection and follows with Dr. Cm outpatient. Patient reports her primary care provider is Dr. 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 [place] to the operating note patient had extensive adhesions due to the previous laparotomy and lysis of adhesions were done during procedure. Patient is currently maintained on epidural pain pump with anesthesia following an patient reports significant pain. Patient is currently on clear liquids and tolerating. Patient reports to having belching although no reports of gas or bowel movement as of yet. Patient with an incentive spirometer at the bedside encourage the patient to continue using at least 10 times every hour while awake. Will review home medications and resume appropriate medications and this was discussed with the patient at the bedside. Patient to increase activity slowly as tolerated and more so with the epidural pain pump is removed. 07/04/2022 Patient is seen this morning and is having some continued pain and maintained on epidural pump. Possible discontinue today and then will remove burt and increase activity as tolerated. Patient is to continue with clear liquid today per surgery and will be advanced per surgery recommendations once there is some bowel activity. Afebrile and WBC is trending down. No reports of chest pain or shortness of breath. Continue to encourage incentive spirometer at least 10 times per hour. 07/05/2022 Patient is seen today and having extreme nausea and abdominal pain. Patient is continued on IV pain pump and is being discontinued today. Patient is not having any gas and no bowel movements. Patient appears more distended on exam. Patient continues to have elevated WBC and Zosyn being added. Afebrile. Recommend chest xray and will order. Encouraged incentive spirometer. Recommend burt catheter removal and increased activity as tolerated. Recommend repeat am labs. Review Of Systems: Constitutional: No fever, no chills, no night sweats. No weight change. No weakness, fatigue or lethargy. No daytime sleepiness. Lungs: reports some intermittent shortness of breath, no cough, no sputum production. No wheezing. Cardiovascular: No chest pain, no lower extremity edema. No palpitations. No paroxysmal nocturnal dyspnea. No orthopnea. No lightheadedness or dizziness. No syncopal episodes. Abdominal: reports abdominal pain. with nausea,no vomiting. Reports no gas or bowel movement, with lots of belching Genitourinary: No dysuria, increased frequency, urgency. No urinary retention. Musculoskeletal: No myalgias. No muscle weakness, no gait dysfunction, no frequent falls. No back pain. No neck pain. Neurologic: No aphasia. No facial droop. No change in mentation. No head injury. No headache. No paralysis. No paresthesia. PHYSICAL EXAMINATION: GENERAL: The patient is alert and oriented x4, Well developed, well nourished. HEENT: Pupils are round and equally reacting to light. EOMI. no scleral icterus. No conjunctival pallor. Normocephalic, atraumatic. No pharyngeal erythema. No thyromegaly. CARDIOVASCULAR: S1 and S2 muffled PULMONARY: diminished breath sounds bilaterally with no wheezing or rhonchi noted. ABDOMEN: soft. tender on exam. distended, absent bowel sounds. No palpable organomegaly. MUSCULOSKELETAL: No joint swelling or deformity. EXTREMITIES: No cyanosis, clubbing, or pedal edema. NEUROLOGICAL: Gross neurological examination did not reveal any focal deficits. SKIN: No rashes. Assessment: Post lysis of adhesions and lower anterior resection Leukocytosis, possibly reactive secondary to above, trending down post-op ileus History of diverticulitis History of fibromyalgia History of seizure disorder History of colitis with IBS History of herniated disks in the back and neck with chronic pain GI prophylaxis DVT prophylaxis Full code Plan: Recommend to continue with current medications and management per general surgery services. Patient is postop day #3 for lysis of adhesions with low anterior resection and continued on pain pump. To be removed today along with burt catheter. All home medications have been resumed. Patient is continued on clear liquid diet and will continue for now and possible just sips of water. Not tolerating diet today. Encouraged increase activity as tolerated and also encouraged to continue using incentive spirometer at least 10 times every hour while awake. Zosyn being added due to Mild leukocytosis. Will obtain chest xray. Will follow-up with repeat labs in the a.m. and continue to follow along with general surgery during hospitalization. Thank you for this consultation. The impression and plan of care has been dictated by Judy Rodriguez, nurse practitioner as directed. Dr. Rachele MD I have performed a history and examination and MDM of this patient, discussed the same with the dictator, and agree with the dictator's assessment and plan as written ,documented as a scribe. Based on total visit time, I have performed more than 50% of the visit. Any additional findings or plans will be noted. Past Medical History Objective - Vital Signs Vital signs: Vital Signs Temp 98.4 F 07/05/22 04:30 Pulse 82 07/05/22 04:30 Resp 16 07/05/22 04:30 BP 105/68 07/05/22 04:30 Pulse Ox 94 L 07/05/22 04:30 FiO2 Intake & Output 07/04/22 07/05/22 07/05/22 18:59 06:59 18:59 Intake Total 215.1 Output Total 1800 850 Balance -1584.9 -850 Intake: Intake, IV Titration 215.1 Amount Ropivacaine 250 mg 215.1 Hydromorphone (Pf) 5 mg In Sodium Chloride 0.9% 200 ml @ Per Protocol EPIDURAL .Q0M PRN Rx#: [id number] Output: Urine 1800 850 Other: Voiding Method Indwelling Catheter Indwelling Catheter - Labs CBC & Chem 7: 07/05/22 06:51 07/05/22 06:51 Labs: Abnormal Lab Results - Last 24 Hours (Table) 07/05/22 07/05/22 Range/Units 06:51 06:51 WBC 14.3 H (3.8-10.6) k/uL RBC 3.79 L (3.80-5.40) m/uL Neutrophils # 11.0 H (1.3-7.7) k/uL Sodium 136 L (137-145) mmol/L BUN <2 L (7-17) mg/dL Glucose 113 H (74-99) mg/dL
--- NOTE | 2022-07-05 20:09 | XR ---
EXAMINATION TYPE: XR abdomen acute w cxr - 5 views DATE OF EXAM: 07/05/2022 CLINICAL HISTORY: Abdominal pain, distention, and shortness of breath TECHNIQUE: 2 upright views of the chest and epigastrium and 3 abdominal pelvic supine views. COMPARISON: None. FINDINGS: The lungs are grossly clear. There is no pleural effusion or pneumothorax. Cardiac silhouette size ap pears within normal limits. Gas is noted in nondistended small bowel loops. Gas and fecal material is seen in nondistended colon. Colonic stool volume unremarkable. No pneumoperitoneum, visceromegaly, or suspicious calcification is identified. The osseous structures are intact. IMPRESSION: No acute radiographic process.
[2022-07-06] MEDS: KETOROLAC 15 MG/ML 1 ML VIAL IVP SCH ×4 (00:53→17:29)
[2022-07-06] MEDS: METOCLOPRAMIDE 5 MG/ML 2 ML VIAL IVP SCH ×4 (00:54→17:29)
[2022-07-06] MEDS: PIPERACILLIN-TAZOBACTAM 3.375 GM in SODIUM CHLORIDE 0.9% 100 ML IVPB SCH ×3 (00:54→17:29)
[2022-07-06] MEDS: D5-0.45% NACL WITH KCL 20MEQ/L 1,000 ML IV SCH ×2 (00:54→10:19)
[2022-07-06] MEDS: NON FORMULARY DRUG (Dextroamphetamine/Amphetamine [Adderall] 10 MG Tablet) PO SCH ×2 (00:56→11:47)
[2022-07-06] MEDS: LEVOTHYROXINE 88 MCG TAB PO SCH (06:23)
[2022-07-06] MEDS: HEPARIN SODIUM,PORCINE/PF 5,000 UNIT/0.5 ML SYRINGE SQ SCH ×2 (09:05→20:18)
[2022-07-06] MEDS: ALVIMOPAN 12 MG CAPSULE PO SCH ×2 (09:06→20:18)
[2022-07-06] MEDS: HYDROcodone/APAP 10-325MG 1 EACH TAB PO PRN (09:07)
[2022-07-06] MEDS: LACTATED RINGERS 1,000 ML IV SCH (09:19)
[2022-07-06] MEDS: FAMOTIDINE 20 MG/2 ML VIAL IV SCH ×2 (10:19→20:18)
[2022-07-06 10:44] LABS: Basophils # (A) 0.04 X 10*3/uL (0.00-0.10); Basophils % (A) 0.4 %; Eosinophils # (A) 0.68 X 10*3/uL (0.04-0.35); HGB 11.3 g/dL (12.0-15.0); Immature Grans, Automated 0.6 %; Lymphocytes # (A) 1.42 X 10*3/uL (0.90-5.00); Lymphocytes % (A) 14.5 %; MCH 30.8 pg (27.0-32.0); MCHC 31.4 g/dL (32.0-37.0); MCV 98.1 fL (80.0-97.0); Mean Platelet Volume 10.9 fL (9.5-12.2); Monocytes # (A) 0.92 X 10*3/uL (0.20-1.00); Monocytes % (A) 9.4 %; NRBC Per 100 WBC 0 /100 WBCS (0.0-0.0); Neutrophils # (A) 6.66 X 10*3/uL (1.80-7.70); Neutrophils % (A) 68.1 %; Platelet Count 445 X 10*3/uL (140-440); RBC 3.67 X 10*6/uL (4.10-5.20); RDW 14.4 % (11.5-14.5); WBC 9.78 X 10*3/uL (4.50-10.00)
--- NOTE | 2022-07-06 12:31 | P.PN ---
Subjective Progress Note Date: 07/06/22 CHIEF COMPLAINT: Diverticulitis HISTORY OF PRESENT ILLNESS: Patient status post lower anterior resection. Postop day #4. Patient reports feeling better today. Her abdominal pain is improving. Nausea and vomiting resolved. She finally had a bowel movement and is having flatus. Afebrile. WBC has come down from 14.3 to 9.78 HgB is 11.3 platelet 445 patient complained of burning with urination Patient seen and examined with Dr. Cm PHYSICAL EXAM: VITAL SIGNS: Reviewed. GENERAL: Well-developed in no acute distress. HEENT: No sclera icterus. Extraocular movements grossly intact. Moist buccal mucosa. Head is atraumatic, normocephalic. ABDOMEN: Soft. Nondistended. Tenderness around incision site. Incision site clean dry and intact NEUROLOGIC: Alert and oriented. Cranial nerves II through XII grossly intact. ASSESSMENT: 1. Diverticulitis status post lower anterior resection and lysis of adhesions 2. Leukocytosis 3. Postoperative ileus PLAN: -Anticipate discharge tomorrow -Check urinalysis for burning with urination -Continue Reglan for postoperative ileus -Hep-Lock IV fluids -Advance diet to full liquids -Encouraged patient ambulate -Encouraged patient to use incentive spirometer -GI prophylaxis Pepcid and DVT prophylaxis subcu heparin Physician Feather Stitcher note has been reviewed by physician. Signing provider agrees with the documented findings, assessment, and plan of care. Objective - Vital Signs Vital signs: Vital Signs Temp 98.3 F 07/06/22 09:03 Pulse 70 07/06/22 09:03 Resp 15 07/06/22 09:03 BP 106/72 07/06/22 09:03 Pulse Ox 95 07/06/22 09:03 FiO2 Intake & Output 07/05/22 07/06/22 07/06/22 18:59 06:59 18:59 Intake Total 1350 1100 Output Total 800 Balance 550 1100 Intake: Intake, IV Titration 1350 1100 Amount D5-0.45% NaCl with KCl 1250 1000 20Meq/l 1,000 ml @ 125 mls/hr IV .Q8H MELANIE Rx#: [id number] Piperacillin-Tazobactam 3 100 100 .375 gm In Sodium Chloride 0.9% 100 ml @ 25 mls/hr IVPB Q8HR MELANIE Rx# :[id number] Output: Urine 800 Other: Voiding Method Indwelling Catheter Toilet # Voids 1 - Labs CBC & Chem 7: 07/06/22 07:29 07/05/22 06:51 Labs: Abnormal Lab Results - Last 24 Hours (Table) 07/06/22 Range/Units 07:29 RBC 3.67 L (4.10-5.20) X 10*6/uL Hgb 11.3 L (12.0-15.0) g/dL Hct 36.0 L (37.2-46.3) % MCV 98.1 H (80.0-97.0) fL MCHC 31.4 L (32.0-37.0) g/dL Plt Count 445 H (140-440) X 10*3/uL Immature Gran # 0.06 H (0.00-0.04) X 10*3/uL Eosinophils # 0.68 H (0.04-0.35) X 10*3/uL
--- NOTE | 2022-07-06 14:56 | P.PN ---
Subjective Progress Note Date: 07/06/22 - Reason for Consult Consult date: 07/03/22 Medical manage postop low anterior resection with chronic diverticulitis - History of Present Illness This is a pleasant 61-year-old female who was admitted under general surgery services for lower anterior resection and follows with Dr. Cm outpatient. Patient reports her primary care provider is Dr. 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 [place] to the operating note patient had extensive adhesions due to the previous laparotomy and lysis of adhesions were done during procedure. Patient is currently maintained on epidural pain pump with anesthesia following an patient reports significant pain. Patient is currently on clear liquids and tolerating. Patient reports to having belching although no reports of gas or bowel movement as of yet. Patient with an incentive spirometer at the bedside encourage the patient to continue using at least 10 times every hour while awake. Will review home medications and resume appropriate medications and this was discussed with the patient at the bedside. Patient to increase activity slowly as tolerated and more so with the epidural pain pump is removed. 07/04/2022 Patient is seen this morning and is having some continued pain and maintained on epidural pump. Possible discontinue today and then will remove burt and increase activity as tolerated. Patient is to continue with clear liquid today per surgery and will be advanced per surgery recommendations once there is some bowel activity. Afebrile and WBC is trending down. No reports of chest pain or shortness of breath. Continue to encourage incentive spirometer at least 10 times per hour. 07/05/2022 Patient is seen today and having extreme nausea and abdominal pain. Patient is continued on IV pain pump and is being discontinued today. Patient is not having any gas and no bowel movements. Patient appears more distended on exam. Patient continues to have elevated WBC and Zosyn being added. Afebrile. Recommend chest xray and will order. Encouraged incentive spirometer. Recommend burt catheter removal and increased activity as tolerated. Recommend repeat am labs. 07/06/2022 Patient is seen and evaluated in follow-up with no acute overnight issues noted. Patient reports she is passing gas and had a bowel movement and diet is being advanced. Patient had epidural and Burt catheter removed and is voiding with no difficulties. Patient was started on IV Zosyn empirically as patient had an elevated white count and white count has improved today and within normal limits. Other lab values reviewed and within normal limits. Patient is afebrile denies chest pain or shortness of breath. X-ray was obtained yesterday showing no acute pulmonary process and no obstruction noted of the abdomen. Patient has been up and walking several times and doing relatively well she reports. Encouraged increase activity as tolerated and slowly advancing diet and surgery discussing possible discharge in 24 hours. Patient with incentive spirometer at the bedside encourage the patient to continue using at least 10 times every hour while awake. Review of systems: Constitutional: No reports of fatigue, fever, or chills Cardiovascular: No reports of chest pain or palpitations Respiratory: No reports of shortness of breath or cough GI: No reports of nausea, vomiting, or diarrhea, reports passing gas and having bowel movements : No reports of dysuria or retention Neurovascular: No reports of weakness or numbness All medications have been reviewed PHYSICAL EXAMINATION: GENERAL: The patient is alert and oriented x4, Well developed, well nourished. HEENT: Pupils are round and equally reacting to light. EOMI. no scleral icterus. No conjunctival pallor. Normocephalic, atraumatic. No pharyngeal erythema. No t hyromegaly. CARDIOVASCULAR: S1 and S2 muffled PULMONARY: diminished breath sounds bilaterally with no wheezing or rhonchi noted. ABDOMEN: soft. less tender on exam. less distended, normoactive bowel sounds. No palpable organomegaly. MUSCULOSKELETAL: No joint swelling or deformity. EXTREMITIES: No cyanosis, clubbing, or pedal edema. NEUROLOGICAL: Gross neurological examination did not reveal any focal deficits. SKIN: No rashes. Assessment: Post lysis of adhesions and lower anterior resection Leukocytosis, possibly reactive secondary to above, trending down post-op ileus, resolved History of diverticulitis History of fibromyalgia History of seizure disorder History of colitis with IBS History of herniated disks in the back and neck with chronic pain GI prophylaxis DVT prophylaxis Full code Plan: Recommend to continue with current medications and management per general surge ry services. Patient is postop day #4 for lysis of adhesions with low anterior resection. Patient had epidural pump and Burt catheter removed yesterday and doing relatively well has been up and walking several times is now passing gas and having bowel movements. Patient reports she is voiding with no difficulty. Follow-up chest x-ray and abdomen showed no acute process and no obstruction. All home medications have been resumed. Patient was maintained on clear liquid diet and being advanced per surgery as tolerated. Encouraged increase activity as tolerated and also encouraged to continue using incentive spirometer at least 10 times every hour while awake. Patient was started on IV Zosyn and Patient's white count elevation has improved and within normal limits. Planning for possible discharge in 24 hours. We will continue to follow along with general surgery during hospitalization. Thank you for this consultation. The impression and plan of care has been dictated by Judy Rodriguez, nurse practitioner as directed. Dr. Rachele MD I have performed a history and examination and MDM of this patient, discussed the same with the dictator, and agree with the dictator's assessment and plan as written ,documented as a scribe. Based on total visit time, I have performed more than 50% of the visit. Any additional findings or plans will be noted. Past Medical History Objective - Vital Signs Vital signs: Vital Signs Temp 97.8 F 07/06/22 11:39 Pulse 74 07/06/22 11:39 Resp 18 07/06/22 11:39 BP 118/72 07/06/22 11:39 Pulse Ox 98 07/06/22 11:39 FiO2 Intake & Output 07/05/22 07/06/22 07/06/22 18:59 06:59 18:59 Intake Total 1350 1100 Output Total 800 Balance 550 1100 Intake: Intake, IV Titration 1350 1100 Amount D5-0.45% NaCl with KCl 1250 1000 20Meq/l 1,000 ml @ 125 mls/hr IV .Q8H MELANIE Rx#: [id number] Piperacillin-Tazobactam 3 100 100 .375 gm In Sodium Chloride 0.9% 100 ml @ 25 mls/hr IVPB Q8HR MELANIE Rx# :[id number] Output: Urine 800 Other: Voiding Method Indwelling Catheter Toilet # Voids 1 - Labs CBC & Chem 7: 07/06/22 07:29 07/05/22 06:51 Labs: Abnormal Lab Results - Last 24 Hours (Table) 07/06/22 Range/Units 07:29 RBC 3.67 L (4.10-5.20) X 10*6/uL Hgb 11.3 L (12.0-15.0) g/dL Hct 36.0 L (37.2-46.3) % MCV 98.1 H (80.0-97.0) fL MCHC 31.4 L (32.0-37.0) g/dL Plt Count 445 H (140-440) X 10*3/uL Immature Gran # 0.06 H (0.00-0.04) X 10*3/uL Eosinophils # 0.68 H (0.04-0.35) X 10*3/uL
[2022-07-06 22:51] LABS: Appearance,Urine Turbid (Clear); Bacteria,Urine Rare /hpf; Bilirubin,Urine Negative (Negative); Blood,Urine Moderate (Negative); Budding Yeast,Urine Few /hpf; Color,Urine Yellow; Glucose,Urine (UA) Negative (Negative); Hyaline Casts,Urine 2 /lpf (0-2); Ketones,Urine Trace (Negative); Leukocyte Esterase,Urine Small (Negative); Mucus,Urine Many /hpf; Nitrite,Urine Negative (Negative); Protein,Urine Trace (Negative); RBC,Urine 9 /hpf (0-5); Specific Gravity,Urine 1.018 (1.001-1.035); Squamous Epithelial Cell,Urine 5 /hpf (0-4); Urobilinogen,Urine <2.0 mg/dL (<2.0); WBC,Urine 10 /hpf (0-5)
[2022-07-07] MEDS: METOCLOPRAMIDE 5 MG/ML 2 ML VIAL IVP SCH ×2 (00:08→06:09)
[2022-07-07] MEDS: KETOROLAC 15 MG/ML 1 ML VIAL IVP SCH ×3 (00:08→10:31)
[2022-07-07] MEDS: PIPERACILLIN-TAZOBACTAM 3.375 GM in SODIUM CHLORIDE 0.9% 100 ML IVPB SCH ×2 (00:09→08:57)
[2022-07-07] MEDS: NON FORMULARY DRUG (Dextroamphetamine/Amphetamine [Adderall] 10 MG Tablet) PO SCH ×2 (06:08→08:41)
[2022-07-07] MEDS: LEVOTHYROXINE 88 MCG TAB PO SCH (06:09)
[2022-07-07] MEDS: LACTATED RINGERS 1,000 ML IV SCH (08:40)
[2022-07-07] MEDS: ALVIMOPAN 12 MG CAPSULE PO SCH (08:55)
[2022-07-07] MEDS: FAMOTIDINE 20 MG/2 ML VIAL IV SCH (08:57)
[2022-07-07] MEDS: HYDROcodone/APAP 10-325MG 1 EACH TAB PO PRN (08:57)
[2022-07-07] MEDS: HEPARIN SODIUM,PORCINE/PF 5,000 UNIT/0.5 ML SYRINGE SQ SCH (08:57)
[2022-07-07 11:48] VITALS: BP 124/80; PULSE 63; RESP 17; TEMP 98.3
--- NOTE | 2022-07-07 13:56 | P.PN ---
Subjective Progress Note Date: 07/07/22 CHIEF COMPLAINT: Diverticulitis HISTORY OF PRESENT ILLNESS: The patient is a 61-year-old female admitted with diverticulitis. She is status post lower anterior resection. She reports tolerating liquids. She reports moderate flatus including bowel movements. Her pain is well-controlled. She denies nausea with full liquid diet. ROS: No reports of nausea and vomiting. No fevers or chills. No new chest pain. No productive sputum PHYSICAL EXAM: VITAL SIGNS: Reviewed CONSTITUTIONAL: Well developed and in no acute distress. EYES: Conjuctivae without sclera icterus. Extraocular movements grossly intact. HEAD, EARS, NOSE, THROAT: Moist buccal mucosa. Head is atraumatic, normocephalic. Hears conversational speech. No nasal drainage. RESPIRATORY: Non-labored respirations and equal bilateral excursions. CARDIOVASCULAR: Palpable 2+ radial pulses. ABDOMEN: No peritonitis. MUSCULOSKELETAL: No gross deformity of the lower extremities noted. No clubbing. No cyanosis. SKIN: Good skin turgor. Well perfused. NEUROLOGIC: Cranial nerves II through XII grossly intact. No focal or later alizing signs. PSYCH: Appropriate affect. Alert and oriented to person, place and time. CLINICAL LABS: Reviewed. Hemoglobin 11.3. ASSESSMENT: 1. Diverticulitis status post low anterior resection PLAN: 1. Overall, patient reports moderate improvement from yesterday and seeking for discharge. 2. Follow-up outpatient with index surgeon described Objective - Vital Signs Vital signs: Vital Signs Temp 98.3 F 07/07/22 11:29 Pulse 63 07/07/22 11:29 Resp 17 07/07/22 11:29 BP 124/80 07/07/22 11:29 Pulse Ox 97 07/07/22 11:29 FiO2 Intake & Output 07/06/22 07/07/22 07/07/22 18:59 06:59 18:59 Other: # Voids 3 3 - Labs CBC & Chem 7: 07/06/22 07:29 07/05/22 06:51 Labs: Abnormal Lab Results - Last 24 Hours (Table) 07/06/22 Range/Units 14:50 Urine Appearance Turbid H (Clear) Urine Protein Trace H (Negative) Urine Ketones Trace H (Negative) Urine Blood Moderate H (Negative) Ur Leukocyte Esterase Small H (Negative) Urine RBC 9 H (0-5) /hpf Urine WBC 10 H (0-5) /hpf Ur Squamous Epith Cells 5 H (0-4) /hpf Urine Bacteria Rare H (None) /hpf Urine Mucus Many H (None) /hpf Urine Yeast (Budding) Few H (None) /hpf
--- NOTE | 2022-07-07 13:57 | P.DS ---
Providers Date of admission: 07/02/22 11:53 Expected date of discharge: 07/07/22 Attending physician: Nick Cm Consults: 07/02/22 15:32 Consult Physician Routine Consulting Provider: Za Schneider Consult Reason/Comments: Medical management Do you want consulting provider notified?: Yes Primary care physician: Fili Juno [facility] Hospital Course: CHIEF COMPLAINT: Diverticulitis HISTORY OF PRESENT ILLNESS: The patient is a 61-year-old female admitted with diverticulitis. She is status post lower anterior resection. She reports tolerating liquids. She reports moderate flatus including bowel movements. Her pain is well-controlled. She denies nausea with full liquid diet. ROS: No reports of nausea and vomiting. No fevers or chills. No new chest pain. No productive sputum PHYSICAL EXAM: VITAL SIGNS: Reviewed CONSTITUTIONAL: Well developed and in no acute distress. EYES: Conjuctivae without sclera icterus. Extraocular movements grossly intact. HEAD, EARS, NOSE, THROAT: Moist buccal mucosa. Head is atraumatic, normocephalic. Hears conversational speech. No nasal drainage. RESPIRATORY: Non-labored respirations and equal bilateral excursions. CARDIOVASCULAR: Palpable 2+ radial pulses. ABDOMEN: No peritonitis. MUSCULOSKELETAL: No gross deformity of the lower extremities noted. No clubbing. No cyanosis. SKIN: Good skin turgor. Well perfused. NEUROLOGIC: Cranial nerves II through XII grossly intact. No focal or lateralizing signs. PSYCH: Appropriate affect. Alert and oriented to person, place and time. CLINICAL LABS: Reviewed. Hemoglobin 11.3. ASSESSMENT: 1. Diverticulitis status post low anterior resection PLAN: 1. Overall, patient reports moderate improvement from yesterday and seeking for discharge. 2. Follow-up outpatient with index surgeon described Patient Condition at Discharge: Stable Plan - Discharge Summary Discharge Rx Participant: No New Discharge Prescriptions: New HYDROcodone/APAP 10-325MG [[place] 10-325] 1 tab PO Q6HR PRN 3 Days #12 tab PRN Reason: Pain Amoxic-Pot Clav 875-125Mg [Augmentin 875-125] 1 tab PO Q12HR 5 Days #10 tab No Action Omeprazole 20 mg PO DAILY Albuterol Inhaler [Ventolin Hfa Inhaler] 2 puff INHALATION RT-Q6H PRN PRN Reason: Shortness Of Breath ALPRAZolam [Xanax] 0.25 mg PO DAILY PRN PRN Reason: Anxiety Dextroamphetamine/Amphetamine [Adderall] 10 mg PO BID@0500,1200 Levothyroxine Sodium 175 mcg PO DAILY HYDROcodone/APAP 10-325MG [[place] 10-325] 1 tab PO Q6H PRN PRN Reason: Severe Pain (Scale 7 To 10) Discharge Medication List Albuterol Inhaler [Ventolin Hfa Inhaler] 2 puff INHALATION RT-Q6H PRN 02/15/22 [History] Levothyroxine Sodium 175 mcg PO DAILY 02/15/22 [History] Omeprazole 20 mg PO DAILY 02/15/22 [History] ALPRAZolam [Xanax] 0.25 mg PO DAILY PRN 06/15/22 [History] Dextroamphetamine/Amphetamine [Adderall] 10 mg PO BID@0500,1200 06/20/22 [History] HYDROcodone/APAP 10-325MG [[place] 10-325] 1 tab PO Q6H PRN 06/26/22 [History] Amoxic-Pot Clav 875-125Mg [Augmentin 875-125] 1 tab PO Q12HR 5 Days #10 tab 07/06/22 [Rx] HYDROcodone/APAP 10-325MG [[place] 10-325] 1 tab PO Q6HR PRN 3 Days #12 tab 07/06/22 [Rx] Follow up Appointment(s)/Referral(s): [facility] Visiting Nurse, [NON-STAFF] - 1 Week Nick Cm MD [STAFF PHYSICIAN] - 1 Week Activity/Diet/Wound Care/Special Instructions: No driving while taking [place] No lifting over 10 pounds Shower daily. No soaking or tub baths for 2 weeks Very light activity until you are reevaluated at your follow up appointment with your surgeon Discharge/Stand Alone Forms: Who Do I Call?, Community Resources, Help In The Home, Personal Computer Systems Engineer Discharge Disposition: HOME SELF-CARE
== END 2022-07-07 15:20 | disposition home or self-care (01) | DRG 330 ==
LOC: 2ORMAIN 11:53 → 5NMEDONC 16:00
PROVIDERS: ADMIT Surgery; ATTEND Surgery
PROC: 0DTN0ZZ Resection of Sigmoid Colon, Open Approach (ICD-10-PCS; principal; 2022-07-02 14:15)
PROC: 0DNW0ZZ Release Peritoneum, Open Approach (ICD-10-PCS; principal; 2022-07-02 14:15)
DX: K57.32 Diverticulitis of large intestine without perforation or abscess without bleeding (principal); K56.7 Ileus, unspecified; K91.89 Other postprocedural complications and disorders of digestive system; K66.0 Peritoneal adhesions (postprocedural) (postinfection); M79.7 Fibromyalgia; D72.829 Elevated white blood cell count, unspecified; G40.909 Epilepsy, unspecified, not intractable, without status epilepticus; I34.1 Nonrheumatic mitral (valve) prolapse; Z79.890 Hormone replacement therapy; Z87.828 Personal history of other (healed) physical injury and trauma; Z87.891 Personal history of nicotine dependence; T85.4 Mechanical complication of breast prosthesis and implant; Z88.5 Allergy status to narcotic agent; Z88.8 Allergy status to other drugs, medicaments and biological substances; Z91.040 Latex allergy status; K58.9 Irritable bowel syndrome, unspecified; G89.29 Other chronic pain; Z79.899 Other long term (current) drug therapy
CPT/HCPCS: 74022; 80048; 81001; 85025; 86850; 86900; 86901; 88307; 94640; 94760